=== PATIENT | male | born 1980 ===

== ENCOUNTER → 2020-04-30 11:29 | Outpatient (BNVA) | payer OTHER, SELFPAY | PROVIDERS: Family Provider Family Medicine; Visit Provider Family Medicine | DX: I10 Essential (primary) hypertension (principal); R53.83 Other fatigue | CPT/HCPCS: 80053; 80061; 82043; 84443; 85025 ==

== ENCOUNTER 2020-09-30 15:31 | Outpatient (CLI) | payer OTHER, SELFPAY ==
--- NOTE | 2020-09-30 15:42 | XR_ITS ---
WS: [id number] KNEE RIGHT TECHNIQUE: 3 views of the right knee CLINICAL INFORMATION: acute pain of right knee COMPARISON: None. FINDINGS: Right knee is normal in appearance. No evidence of acute fracture dislocation. No significant effusio n. Patella is normal. XR/XR knee RT 3V* [id number] IMPRESSION: Normal right knee.
== END 2020-09-30 15:32 | disposition home or self-care (01) ==
PROVIDERS: PCP Family Medicine; Visit Provider Family Medicine
DX: M25.561 Pain in right knee (principal)
CPT/HCPCS: 73562

== ENCOUNTER 2020-11-18 15:43 | Outpatient (CLI) | payer OTHER, SELFPAY ==
--- NOTE | 2020-11-18 16:00 | MR_ITS ---
WS: [id number] MRI RIGHT KNEE NONCONTRAST TECHNIQUE: Axial PD, coronal PD fat sat, coronal PD, sagittal PD, and sagittal PD fat-sat images obta ined. CLINICAL INFORMATION: RIGHT KNEE PAIN. Running injury. Edwards pop. COMPARISON: None. FINDINGS: Distal quadriceps tendon and patella tendons are intact. Hypertrophic patella. ACL appears intact. In trasubstance signal abnormality within the ACL consistent with partial intrasubstance tear. Medial and lateral meniscus are normal in appearance. Mild chronic thinning of the meniscus. Meniscal cyst along the anterior horn medial meniscus measuring 8.2 x 4.3 mm. Mild degenerative narrowing medial and lateral joint compartments. Mild chondromalacia. 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 No subchondral edema. Normal medial and latera l patellar retinaculum. Normal medial and lateral collateral ligaments. Normal popliteal fossa. Tiny suprapatellar effusion. MR/MR knee RT wo con* [id number] IMPRESSION: 1. Intrasubstance signal abnormality involving the ACL consistent with partial intrasubstance tear. 2. PCL appears intact. 3. Mild chronic thinning of the meniscus. Small parameniscal cyst along the an terior horn medial meniscus. 4. Moderate chondromalacia patella worse involving the medial patella facet. 5. Mild degenerative narrowing involving the medial and lateral joint compartm ents with chondromalacia. Outbridge grading: grade III: partial-thickness cartilage loss with focal ulcer ation
== END 2020-11-18 15:44 | disposition home or self-care (01) ==
PROVIDERS: PCP Family Medicine; Visit Provider Family Medicine
DX: M25.561 Pain in right knee (principal); M22.41 Chondromalacia patellae, right knee; M23.011 Cystic meniscus, anterior horn of medial meniscus, right knee
CPT/HCPCS: 73721

== ENCOUNTER → 2021-07-26 08:19 | Outpatient (BNVA) | payer OTHER, SELFPAY | PROVIDERS: PCP Family Medicine; Visit Provider Family Medicine | DX: I10 Essential (primary) hypertension (principal) | CPT/HCPCS: 80053; 80061; 82043; 85025 ==

== ENCOUNTER → 2021-08-29 08:16 | Outpatient (BNVA) | payer OTHER, SELFPAY | PROVIDERS: PCP Family Medicine; Visit Provider Family Medicine | DX: E78.00 Pure hypercholesterolemia, unspecified (principal) | CPT/HCPCS: 80053 ==

== ENCOUNTER → 2022-09-01 09:13 | Outpatient (BNVA) | payer OTHER, SELFPAY | PROVIDERS: PCP Family Medicine; Visit Provider Family Medicine | DX: I10 Essential (primary) hypertension (principal) | CPT/HCPCS: 80053; 80061; 82043; 85025 ==

== ENCOUNTER 2023-11-11 00:12 | Emergency (ER) | payer OTHER, SELFPAY ==
[2023-11-11 00:20] VITALS: BP 105/71; PULSE 86; RESP 17; TEMP 36.5; O2SAT 98; BMI 26.6
[2023-11-11 00:30] VITALS: PULSE 84; RESP 16; O2SAT 98
--- NOTE | 2023-11-11 00:34 | ED_ITS ---
HPI - Eye Problem General: Chief complaint: Eye Problems Stated complaint: Somthing in right eye Time Seen by Provider: 11/11/23 00:29 History of Present Illness: Patient states he got a piece of metal in his eye today about 1:00 in his right eye is unable to get out despite rinsing his eye multiple times with [id number] eye washes. [facility] ED PFSH: Medical History Essential hypertension Surgical History History of heart surgery H/O hernia repair Family History Other Diabetes Social History Smoking and tobacco/nicotine status: current every day tobacco/nicotine user smokeless tobacco Smokeless tobacco user: chewing tobacco Alcohol intake: never Substance/Drug Use: never Physical Exam Const: COMMON NORMALS: no acute distress, average body habitus, patient oriented x3, no limitations, healthy appearing, alert and well nourished HENMT: COMMON NORMALS: normocephalic, atraumatic, hearing grossly normal bilaterally, external ears normal, Normal external nose present, moist oral mucous membranes and oropharynx normal HEAD & SCALP: normocephalic and atraumatic NOSE: Normal external nose present EXTERNAL EAR: Yes external ears normal Eye: COMMON NORMALS: Equal, round and reactive pupils present and EOMs intact bilaterally PUPIL: Yes Equal, round and reactive pupils present OTHER: Foreign body noted in the lower sclera in the lower iris. Chest: COMMONS NORMALS: normal inspection of the chest and normal palpation of entire chest wall Resp: COMMON NORMALS: normal respiratory effort, No retractions, No use of accessory muscles and clear to auscultation bilaterally AUSCULTATION: clear to auscultation bilaterally Neuro: COMMON NORMALS: patient oriented x3 SENSORIUM/ORIENTATION: Yes alert Procedures FB Removal Eye Time Out performed: Yes Location: eye (R) Topical anesthetic used: tetracaine Foreign body: metal Evidence of corneal penetration: No Technique: cotton tip swab and needle Procedure performed under: direct visualization with magnification Post-procedure medication: ophthalmic antibiotic Patient tolerated procedure: well and other (Foreign body was removed however there is a rust ring that we are unable to remove.) Course Vital Signs: Vital signs: Vital Signs Temperature 97.7 F 11/11/23 00:20 Pulse Rate 84 11/11/23 00:30 Respiratory Rate 16 11/11/23 00:30 Blood Pressure 105/71 11/11/23 00:20 Pulse Oximetry 98 11/11/23 00:30 Oxygen Delivery Me thod Room Air 11/11/23 00:20 MDM - Eye Problem Medical Decision Making Right eye was anesthetized with tetracaine eyedrops, foreign body was attempted to removed by cotton swab but was unable to be removed. It was removed by 18- gauge needle, this left a rust ring in place rust ring was gently tried to be removed he was unable to be removed. Patient tolerated procedure well. OLIVE Murillo was contacted who said we can start him on some Maxitrol eyedrops 3-4 times daily and he can follow-up with him in the clinic for further treatment. Differential Diagnosis Unlikely corneal abrasion, conjunctivitis, acute iritis, hyphema, periorbital cellulitis, subconjunctival hemorrhage, glaucoma, corneal ulcer or ruptured globe Medical Records I reviewed the patient's medical records. Lab Data I reviewed the patient's lab results. No radiology studies performed this visit Discharge Plan Discharge Patient Disposition: Home Clinical Impression: Eye foreign body Qualifiers: Encounter type: initial encounter Laterality: right Qualified Code(s): T15.91XA - Foreign body on external eye, part unspecified, right eye, initial encounter Condition: Stable Prescriptions: No Action atorvastatin 40 mg tablet See Rx Instructions .ROUTE .COMPLEX Qty: 90 3RF Dose Instruction: TAKE 1 TABLET BY MOUTH EVERY DAY Rx Instructions: TAKE 1 TABLET BY MOUTH EVERY DAY celecoxib 200 mg capsule See Rx Instructions .ROUTE .COMPLEX Qty: 30 0RF Dose Instruction: TAKE 1 CAPSULE BY MOUTH EVERY DAY Rx Instructions: TAKE 1 CAPSULE BY MOUTH EVERY DAY lisinopril 20 mg tablet See Rx Instructions .ROUTE .COMPLEX Qty: 14 0RF Dose Instruction: TAKE 1 TABLET BY MOUTH EVERY DAY Rx Instructions: TAKE 1 TABLET BY MOUTH EVERY DAY Discharge Orders: Discharge ED (Routine); Ordered 11/11/23 Ordered By: Elmo Orlando Referrals: Melinda Francisco DO [Primary Care Provider] - 1 week Patient Instructions: Foreign Body - Eye Activity Restrictions/Additional Instructions: The foreign body in your right eye was removed however since the piece of metal was in there for an extended period time it left the rust ring. This will have to be removed also. Please use the Maxitrol eyedrops 2 drops in your right eye 4 times daily. Please [facility] for further evaluation and treatment. If your eye worsens during this time please call their on-call office to talk with the on-call provider about getting you in quicker or return to the emergency room. Coding Level of Care Code ED Assistant [employer] Coach for [employer]w Mravin
[2023-11-11] MEDS: tetracaine 0.5% Op Soln 4 mL Btl 1 DROP EYE-RIGHT (00:45)
[2023-11-11] MEDS: neomycin-poly-dex Op 5 mL Btl 2 DROP EYE-RIGHT (01:38)
[2023-11-11 01:51] VITALS: PULSE 80; RESP 18; O2SAT 98
== END 2023-11-11 01:50 | disposition home or self-care (01) ==
PROVIDERS: Emergency Provider Emergency Medicine; PCP Family Medicine
DX: T15.91XA Foreign body on external eye, part unspecified, right eye, initial encounter (principal); I10 Essential (primary) hypertension; F17.220 Nicotine dependence, chewing tobacco, uncomplicated; W44.D0XA Magnetic metal object unspecified, entering into or through a natural orifice, initial encounter
CPT/HCPCS: 65220; 99283